=== PATIENT | male | born 1995 | race Two or more races ===

== ENCOUNTER 2024-06-10 14:16 | Emergency (ER) | payer SELFPAY ==
[2024-06-10 14:34] VITALS: BP 121/77; PULSE 65; RESP 18; TEMP 97.9; BMI 25.7
[2024-06-10] MEDS ORDERED: LIDOCAINE 4% PATCH TP ONE (14:56)
[2024-06-10] MEDS ORDERED: METHOCARBAMOL 500 MG TABLET ONE (14:56)
[2024-06-10] MEDS ORDERED: IBUPROFEN 600 MG TABLET (FP) PO ONE (14:56)
[2024-06-10] MEDS: IBUPROFEN 600 MG TABLET (FP) PO ONE (15:02)
[2024-06-10] MEDS: METHOCARBAMOL 750 MG TAB PO ONE (15:02)
[2024-06-10] MEDS: LIDOCAINE 4% PATCH TP ONE (15:02)
[2024-06-10] MEDS ORDERED: LIDOCAINE PATCH REMOVAL MC SCH (22:00)
== END 2024-06-10 15:30 | disposition home or self-care (01) ==
LOC: JERFT 14:16
DX: M54.6 Pain in thoracic spine (principal); V49.50XA Passenger injured in collision with unspecified motor vehicles in traffic accident, initial encounter
CPT/HCPCS: 99283-25